=== PATIENT | female | born 1980 | race Caucasian/White ===

== ENCOUNTER 2023-05-24 14:15 | Emergency (ER) | payer BC ==
[2023-05-24] MEDS ORDERED: Mineral Oil/Petrolatum/Phenylephrine/Shark Liver Oil Oint 57 GM Tube RECTAL PRN (14:25)
== END 2023-05-24 14:58 | disposition home or self-care (01) ==
LOC: VM.ED 14:15
DX: K64.5 Perianal venous thrombosis (principal); Z88.0 Allergy status to penicillin; Z91.040 Latex allergy status
CPT/HCPCS: 99282; 99283